=== PATIENT | female | born 1980 ===

== ENCOUNTER 2016-07-02 00:26 | Inpatient (IN) | payer OTHER ==
[2016-07-01 22:39] VITALS: BMI 29.6
--- NOTE | 2016-07-02 01:33 | OBADHP ---
Datetime: 07/02/2016 01:32 Admit Comment, IP Provider: 35yo gp edc 07/07 presents w/ c/o ctxs since Denies srom, decreased fm or problems with preg. pmhx _ pshx: denies shx: denies etoh, drugs or tobacco use nkda medic: pnv I: 39.2wks Labor P: admit for epidural Datetime: 07/02/2016 01:25 Pelvic Type - PN: Adequate Extremities - PN: Normal Abdomen - PN: Normal Lungs - PN: Normal Heart - PN: Normal Neurologic - PN: Normal HEENT - PN: Normal General - PN: Normal FHR - Baseline A Provider: 130 Contraction Comments Provider: q5-7min IP Chief Complaint: Uterine contractions NICHD Variability Prov Fetus A: Minimal - Undetectable to <5bpm NICHD Accel Fetus A IP Provider: 15X15 FHR Category Provider Fetus A: Category I NICHD Decel Fetus A IP Provider: None Dilatation, Provider: 5 Effacement, Provider: 80 Station, Provider: -3 Genitourinary Exam: Normal EGA AdmitDate IP: 39.2 IP Adm Impression: Term, intrauterine IP Admit Plan: Admit to unit; Initiate labor protocol
[2016-07-02 01:39] LABS: BASO # 0.1 K/uL (0.0-0.2); BASO % 0.6 % (0.0-2.0); EOS # 0.1 K/uL (0.0-0.7); EOS % 0.7 % (0.0-4.0); HEMATOCRIT 36.4 % (34.0-47.0); LYMPH % 22.7 % (20.0-40.0); MEAN CELL VOLUME 93.9 fl (81.0-99.0); MEAN CORPUSCULAR HEMOGLOBIN 31.8 pg (27.0-31.0); MEAN CORPUSCULAR HGB CONC 33.9 g/dL (33.0-37.0); MEAN PLATELET VOLUME 10.4 fl (7.2-11.7); MONO # 0.6 K/uL (0.0-0.8); MONO % 6.6 % (0.0-10.0); NEUT # 6.2 K/uL (1.8-7.0); NEUT % 69.4 % (50.0-75.0); RED CELL DISTRIBUTION WIDTH 13.4 % (11.5-14.5)
[2016-07-02] MEDS ORDERED: Fentanyl/Bupivacaine HCl 250 ML EPI ONE (01:45)
[2016-07-02] MEDS ORDERED: Lactated Ringer's 1,000 ML IV SCH (03:15)
[2016-07-02 03:41] VITALS: BP 143/83; PULSE 95; RESP 17; TEMP 98
[2016-07-02] MEDS ORDERED: Lidocaine 1% Inj (20ml) ONE (05:25)
--- NOTE | 2016-07-02 06:36 | OBHP ---
Datetime: 07/02/2016 01:32 Admit Comment, IP Provider: 35yo gp edc 07/07 presents w/ c/o ctxs since Denies srom, decreased fm or problems with preg. PNC with Dr. Kasper pmhx _ pshx: denies shx: denies etoh, drugs or tobacco use nkda medic: pnv I: 39.2wks Labor P: admit for epidural Datetime: 07/02/2016 01:25 IP Adm Impression: Term, intrauterine IP Admit Plan: Admit to unit; Initiate labor protocol Pelvic Type - PN: Adequate Extremities - PN: Normal Abdomen - PN: Normal Lungs - PN: Normal Heart - PN: Normal Neurologic - PN: Normal HEENT - PN: Normal General - PN: Normal FHR - Baseline A Provider: 130 Contraction Comments Provider: q5-7min EGA AdmitDate IP: 39.2 IP Chief Complaint: Uterine contractions NICHD Variability Prov Fetus A: Minimal - Undetectable to <5bpm NICHD Accel Fetus A IP Provider: 15X15 FHR Category Provider Fetus A: Category I NICHD Decel Fetus A IP Provider: None Dilatation, Provider: 5 Effacement, Provider: 80 Station, Provider: -3 Genitourinary Exam: Normal
[2016-07-02] MEDS ORDERED: Benzocaine/Menthol SPRAY TOP PRN ×2 (06:40→10:23)
[2016-07-02] MEDS ORDERED: Oxycodone/Acetaminophen 5/325 mg Tab PO PRN ×4 (06:40→10:23)
[2016-07-02] MEDS ORDERED: Oxytocin 30 units/LR 500ML 500 ML IV SCH (06:45)
--- NOTE | 2016-07-02 06:50 | OBDS ---
MATERNAL INFORMATION Delivery Anesthesia: Epidural Placenta Cultured: No Provider Comments: Delivery Note: Intrapart Dx: term preg; labor PP Dx: same Procedure: ob: [place] anesthesia: epidural-dr deo ebl 200cc findings: viable male 9_9 7lb2oz no complications remained in br with pt LABOR SUMMARY EDC: 07/07/2016 00:00 No. Babies in Womb: 1 Attempted: No Labor Anesthesia: Epidural LABOR INFORMATION Reason for Induction: Not Applicable Onset of Labor: 07/01/2016 23:00 Oxytocin: N/A Group B Beta Strep: Negative Steroids Given: None Reason Steroids Not Administered: Not Applicable MEMBRANES Membranes Rupture Method: Artificial Rupture of Membranes: 07/02/2016 05:40 Amniotic Fluid Color: Clear Amniotic Fluid Amount: Moderate VAGINAL DELIVERY Episiotomy: None Laceration Extension: N/A Laceration Type: None Sharps Count Correct: Yes Count Comment: Lap count correct #5 BABY A INFORMATION Method of Delivery: Vaginal Born in Route : No : N/A Forceps: N/A Vacuum Extraction: N/A PRESENTATION/POSITION BABY A Presentation: Cephalic Cephalic Presentation: Vertex Breech Presentation: N/A INFORMATION BABY A Gestational Age at Delivery: 39.2 Gestational Status: Term Sex: Male
[2016-07-02] MEDS: Lactated Ringer's 1,000 ML IV SCH ×3 (07:07→07:09)
[2016-07-02] MEDS ORDERED: Multivitamin With Minerals Tab PO SCH (09:00)
[2016-07-03 07:29] LABS: HEMATOCRIT 36.2 % (34.0-47.0); MEAN CELL VOLUME 94.3 fl (81.0-99.0); MEAN CORPUSCULAR HEMOGLOBIN 31.5 pg (27.0-31.0); MEAN CORPUSCULAR HGB CONC 33.5 g/dL (33.0-37.0); RED CELL DISTRIBUTION WIDTH 13.5 % (11.5-14.5); WHITE BLOOD COUNT 10.3 K/uL (4.8-10.8)
[2016-07-03] MEDS ORDERED: Multivitamin With Minerals Tab PO SCH (09:00)
--- NOTE | 2016-07-03 15:06 | OBPPN ---
Datetime: 07/03/2016 15:03 PP Pain Prov: Within normal limits PP Nausea Prov: Denies PP Flatus Prov: Yes PP BM Prov: Yes PP Breasts Prov: Not Done PP Heart Prov: Normal PP Lungs Prov: Normal PP Abdomen/Uterus Prov: Normal PP Lochia Prov: Normal PP Vulva/Perineum Prov: Normal PP CVA Tenderness Prov: Normal PP Extremities Prov: Normal PP Progress Prov: Normal PP Impression Prov: Normal progression PP Plan Prov: Continue present management; Discharge PP Progress Note Prov: She feels fine. She wants to go home...awaiting Peds for clearance. A: S/P day 1 P: if baby cleared by Peds will discharge home Vital Signs Provider PP: Within Normal Limits
--- NOTE | 2016-07-03 16:58 | OBDCSUM ---
Datetime: 07/03/2016 16:56 Discharged to, Provider: Home Follow up at, Provider: [place] Disch Instr Activity: Normal activity Disch Instr Diet: Regular Discharge Instructions, Provider: Routine instructions given Discharge Diagnosis, Provider: Term Delivered Follow up in weeks, Provider: 6w Disch Referrals: None Contraception discussed, Prov: Yes Disch Activity Restrictions: No sexual activity; Nothing in vagina - [place], tampons, douche
== END 2016-07-03 19:22 | disposition home or self-care (01) | DRG 373 ==
LOC: H.EROB2 00:26 → H.L&D 01:11 → H.OB/GYN 09:45
PROVIDERS: ADMIT Obstetrics & Gynecology; ATTEND Obstetrics & Gynecology
PROC: 10E0XZZ Delivery of Products of Conception, External Approach (ICD-10-PCS; principal; 2016-07-02)
PROC: 10907ZC Drainage of Amniotic Fluid, Therapeutic from Products of Conception, Via Natural or Artificial Opening (ICD-10-PCS; 2016-07-02)
PROC: 4A1HXCZ Monitoring of Products of Conception, Cardiac Rate, External Approach (ICD-10-PCS; 2016-07-02)
DX: O80 Encounter for full-term uncomplicated delivery (principal); Z37.0 Single live birth; Z3A.39 39 weeks gestation of pregnancy